=== PATIENT | male | born 1965 | race Caucasian/White ===

== ENCOUNTER 2017-01-21 09:27 | Emergency (ER) | payer SELFPAY ==
[~2017-01-21] VITALS: Ht 170.2 cm; Wt 98.0 kg
[2017-01-21 09:27] VITALS: Ht 170.2 cm; Wt 98.0 kg
[2017-01-21] MEDS ORDERED: ONDANSETRON 4 MG INJ IV STA (09:33)
[2017-01-21] MEDS ORDERED: morphine 4 MG/ML VIAL IV STA (09:33)
[2017-01-21] MEDS ORDERED: SOD CHLORIDE 0.9% 500 ML IV STA (09:33)
[2017-01-21 10:01] LABS: BASOPHIL # 0.1 10^3/ul (0.0-0.1); BASOPHILS % 0.7 % (0.0-2.0); EOSINOPHILS # 0.2 10^3/ul (0.0-0.5); EOSINOPHILS % 1.6 % (0.0-7.0); HEMOGLOBIN 15.5 g/dl (14.0-18.0); LYMPHOCYTES # 2.3 10^3/ul (0.8-2.9); LYMPHOCYTES % 22.8 % (15.0-51.0); MEAN CORPUSCULAR HEMOGLOBIN 29.6 pg (29.0-33.0); MEAN CORPUSCULAR HGB CONC 34.4 g/dl (32.0-37.0); MEAN PLATELET VOLUME 9.3 fl (7.4-10.4); MONOCYTE # 0.6 10^3/ul (0.3-0.9); MONOCYTES % 6.5 % (0.0-11.0); NEUTROPHILS % 67.9 % (39.0-77.0); PLATELET COUNT 344 10^3/UL (140-415); RED BLOOD COUNT 5.23 10^6/ul (4.70-6.10); RED CELL DISTRIBUTION WIDTH 11.7 % (11.5-14.5); WHITE BLOOD COUNT 9.9 10^3/ul (4.8-10.8)
[2017-01-21] MEDS ORDERED: HYDROmorphONE 1 MG/ML SYG ONE ×2 (10:17→10:45)
[2017-01-21 11:16] VITALS: BP 132/90; PULSE 69; RESP 14; TEMP 98.9
--- NOTE | 2017-01-21 11:22 | RADRPT ---
PROCEDURE: CT Abdomen and Pelvis without contrast. CLINICAL INDICATION: Right flank pain. TECHNIQUE: Routine abdominopelvic CT was performed without intravenous contrast and reformatted in the axial, coronal, sagittal planes. Radiation dose: CTDIvol (mGy) = 20.1; total DLP mGy-cm = 1284. One or more of the following radiation dose techniques were used: -Automated exposure control. -Adjust of the mA and/or kV according to patient size. -Use of iterative reconstruction technique. COMPARISON: None. FINDINGS: There are diffuse steatotic changes evident within the mildly enlarged liver measuring 19 cm in cran iocaudal length. Gallbladder, biliary system, pancreas, adrenal glands, and spleen are unremarkable by unenhanced CT. There is mild renal pelviectasis with perinephric inflammation without a ureteral calculus identifie d. Left kidney is within normal limits. No abnormal bowel wall thickening or dilatation. Appendix is normal. Small bowel loops are normal in caliber mural thickness. Diastases of the rectus abdominis musculature with a small fat-containing umbilical hernia. There are trace aortic calcifications without aneurysm. Small left greater than right fat containing inguinal hernia. There are no concerning bone lesions. IMPRESSION: Right renal pelviectasis with peripelvic inflammation without urolithiasis. Findings may reflect py elonephritis/ascending urinary tract infection or a recently passed calculus. Hepatic steatosis with mild hepatomegaly. RPTAT: EE .Mathew Cordero MD, MD Date Time Electronically viewed and signed by .Mathew Cordero MD, on 01/21/2017 11:27 .C/
[2017-01-21] MEDS ORDERED: ONDA4TAB14 PO (11:37)
[2017-01-21] MEDS ORDERED: TAMS-14 PO (11:37)
[2017-01-21] MEDS ORDERED: IBUP800T25 PO (11:37)
[2017-01-21] MEDS ORDERED: HYDR-902 PO (11:37)
[2017-01-21 11:47] LABS: ALBUMIN 4.5 g/dl (3.3-4.9); ALBUMIN/GLOBULIN RATIO 1.32; BILIRUBIN,INDIRECT 0.5 mg/dl (0-1.1); BILIRUBIN,TOTAL 0.5 mg/dl (0.2-1.3); CALCIUM 9.5 mg/dl (8.4-10.2); CREATININE 0.88 mg/dl (0.61-1.24); POTASSIUM 3.6 mmol/L (3.5-5.1); TOTAL PROTEIN 7.9 g/dl (6.1-8.1)
--- NOTE | 2017-01-21 11:56 | ERD ---
ER Documentation Chief Complaint Date/Time DATE: 01/21/17 TIME: 11:47 Chief Complaint Abdominal Pain HPI This is a 52-year-old male with no significant past medical history does not take medications who presents with sudden onset of right-sided abdominal pain with slight radiation to the right flank. Pain is moderate to severe, colicky but now more constant. He denies any fevers or chills, no dysuria urgency or frequency. He denies any chest pain or pleuritic pain. He denies history of renal stone. ROS All systems reviewed and are negative except as per history of present illness. Medications Home Meds Active Scripts Ondansetron (Ondansetron Odt) 4 Mg Tab.rapdis, 4 MG PO Q6H Y for NAUSEA AND/OR VOMITING, #10 TAB Prov:KERRY MARIE MD 01/21/17 Hydrocodone/Acetaminophen (Tippecanoe 10-325 Tablet) 1 Each Tablet, 1 TAB PO Q6H Y for PAIN, #7 TAB Prov:KERRY MARIE MD 01/21/17 Tamsulosin Hcl* (Flomax*) 0.4 Mg Cap.er.24h, 0.4 MG PO DAILY, #14 CAP Prov:KERRY MARIE MD 01/21/17 Ibuprofen* (Motrin*) 800 Mg Tab, 800 MG PO Q6H Y for PAIN AND OR ELEVATED TEMP, #30 TAB Prov:KERRY MARIE MD 01/21/17 PMhx/Soc Medical and Surgical Hx: pt denies Medical Hx, pt denies Surgical Hx History of Surgery: No Anesthesia Reaction: No Hx Neurological Disorder: No Hx Respiratory Disorders: No Hx Cardiac Disorders: No Hx Psychiatric Problems: No Hx Miscellaneous Medical Probl: No Hx Alcohol Use: No Hx Substance Use: No Hx Tobacco Use: Yes Smoking Status: Current every day smoker FmHx Family History: No diabetes Physical Exam Vitals Vital Signs Date Time Temp Pulse Resp B/P Pulse Ox O2 Delivery O2 Flow Rate FiO2 01/21/17 09:30 98.9 73 12 154/93 98 01/21/17 09:27 98.9 73 12 154/93 98 Physical Exam General: Well developed, well nourished, Uncomfortable Head: Normocephalic, atraumatic. Eyes: Pupils equally reactive, EOM intact ENT: Moist mucous membranes Neck: Supple, no lymphadenopathy Respiratory: Lungs clear bilaterally, no distress Cardiovascular: RRR, no murmurs, rubs, or gallops Abdominal: Soft, No tenderness to McBurney's point, negative Gomez sign, no inguinal hernia, no pulsatile mass and no peritonitis : Deferred MSK: No edema, no unilateral swelling, 5/5 strength Neurologic: Alert and oriented, moving all extremities, normal speech, no focal weakness, no cerebellar signs Skin: No rash Psych: Normal mood Result Diagram: 01/21/1740 Results 24 hrs Laboratory Tests Test 01/21/17 09:40 White Blood Count 9.910^3/ul Red Blood Count 5.2310^6/ul Hemoglobin 15.5g/dl Hematocrit 45.0% Mean Corpuscular Volume 86.0fl Mean Corpuscular Hemoglobin 29.6pg Mean Corpuscular Hemoglobin Concent 34.4g/dl Red Cell Distribution Width 11.7% Platelet Count 19426^3/UL Mean Platelet Volume 9.3fl Neutrophils % 67.9% Lymphocytes % 22.8% Monocytes % 6.5% Eosinophils % 1.6% Basophils % 0.7% Nucleated Red Blood Cells % 0.0/100WBC Neutrophils # (Manual) 6.710^3/ul Lymphocytes # 2.310^3/ul Monocytes # 0.610^3/ul Eosinophils # 0.210^3/ul Basophils # 0.110^3/ul Nucleated Red Blood Cells # 0.010^3/ul Current Medications Medications (Trade) Dose Ordered Sig/Nathalie Route PRN Reason Start Time Stop Time Status Last Admin Dose Admin Sodium Chloride (NS) 500 ml @ 500 mls/hr Q1H STAT IV 01/21/17 09:33 01/21/17 11:19 DC 01/21/17 09:46 Morphine Sulfate (morphine) 4 mg ONCE STAT IV 01/21/17 09:33 01/21/17 09:35 DC 01/21/17 09:46 Ondansetron HCl (Zofran Inj) 4 mg ONCE STAT IV 01/21/17 09:33 01/21/17 09:35 DC 01/21/17 09:46 Hydromorphone HCl (Dilaudid) 1 mg STK-MED ONCE .ROUTE 8/30/17 10:17 01/21/17 11:00 DC Hydromorphone HCl (Dilaudid) 1 mg STK-MED ONCE .ROUTE 01/21/17 10:45 01/21/17 11:01 DC Procedures/MDM EKG, MONITORS, & DIAGNOSTIC IMAGING: CT abdomen and pelvis IMPRESSION: Right renal pelviectasis with peripelvic inflammation without urolithiasis. Findings may reflect pyelonephritis/ascending urinary tract infection or a recently passed calculus. Hepatic steatosis with mild hepatomegaly. LAB INTERPRETATION: Urinalysis with hematuria without evidence of infection, no renal insufficiency. Hyperglycemia of 219 without evidence of diabetic ketoacidosis MEDICAL DECISION MAKING: The patient presents with colicky right-sided abdominal pain. Low clinical concern for acute aortic process such as dissection. His clinical presentation is more consistent with renal or ureteral colic. Given that the patient has never had a kidney stone before CT imaging of the abdomen and pelvis would be appropriate. Symptom control and rule out infected stone would also be appropriate ER COURSE: The patient received multiple rounds of Dilaudid with pain control. He is now pain-free and asymptomatic. His diagnostic imaging suggests a recently passed stone. This is more consistent with ureterolithiasis and passed stones and pyelonephritis given no leukocytosis and no fever. The patient will benefit from outpatient follow-up The patient does have hyperglycemia with no known diagnosis of diabetes. Given borderline elevation at 217 outpatient glucose testing and fasting glucose would be appropriate. The patient was informed of this. No indication to initiate metformin at this time I kept the patient and/or family informed of laboratory and diagnostic imaging results throughout the emergency room course. DISPOSITION PLAN: We discussed follow up with the patient's primary care doctor within 24 to 48 hours as needed. We also discussed return to the emergency room for worsening symptoms or worsening condition. Outpatient referral: Urology Discharge Medications: Accepting care team and consultations: I discussed the current laboratory data, diagnostic imaging and emergency care provided. Admitting team: Tippecanoe, Zogoldie, Motkatharine, Flomax We discussed the use of narcotics including avoidance of operating heavy machinery and driving as well as its addictive properties. Departure Diagnosis: Primary Impression: Ureterolithiasis Additional Impression: Hyperglycemia Condition: Stable Patient Instructions: Kidney Stone, Passed, Kidney Stone W/ Colic Referrals: [facility] Usted se garrison hecho un examen mdico de control que le indica que no est en garo condicin que requiera tratamiento urgente en el Departamento de Emergencia. Un estudio ms profundo y el tratamiento de kendall condicin pueden esperar sin ningn riesgo hasta que usted sea atendida/o en el consultorio de kendall mdico o garo cl jesus. Es responsabilidad suya arreglar garo yves para el seguimiento del santhosh. MANEJO DE CONDICIONES NO URGENTES EN EL FUTURO 1) Si usted tiene un mdico de atencin primaria: Usted debera llamar a kendall mdico de atencin primaria antes de venir al departamento de emergencia. Despus de las horas de consultorio, kendall doctor o kendall asociado/a est disponible por telfono. El mdico o enfermero de erick en el servicio telefnico puede asesorarle por perez medio para atender el problema, o santhohs contrario se puede programar garo yves. 2) Si usted no tiene un mdico de atencin primaria: Llame al mdico o clnica de referencia que aparece abajo vic las horas de consultorio para hacer garo yves para que le vean. CLINICAS: [facility] [id number] [facility] [phone] [address] [facility] [phone] [address] [facility]. [facility] [phone] [address] [facility] [place] [id number] [phone] [facility]. [phone] [address] [facility] () Usted se garrison hecho un examen mdico de control que le indica que no est en garo condicin que requiera tratamiento urgente en el Departamento de Emergencia. Un estudio ms profundo y el tratamiento de kendall condicin pueden esperar sin ningn riesgo hasta que usted sea atendida/o en el consultorio de kendall mdico o garo cl jesus. Es responsabilidad suya arreglar garo yves para el seguimiento del santhosh. MANEJO DE CONDICIONES NO URGENTES EN EL FUTURO 1) Si usted tiene un mdico de atencin primaria: Usted debera llamar a kendall mdico de atencin primaria antes de venir al departamento de emergencia. Despus de las horas de consultorio, kendall doctor o kendall asociado/a est disponible por telfono. El mdico o enfermero de erick en el servicio telefnico puede asesorarle por perez medio para atender el problema, o santhosh contrario se puede programar garo yves. 2) Si usted no tiene un mdico de atencin primaria: Llame al mdico o condado institucions de referencia que aparece abajo vic las horas de consultorio para hacer garo yves para que le vean. SI USTED NO PUEDE PAGAR PARA KEESHA UN MEDICO puede ir a: [id number] [place] [address] [facility] [address] [place] [address] [facility] [address] [place] [address] [facility] [address] [place], [place] [id number] Additional Instructions: Llame al doctor nombrado abajo (Referral Sources) MAANA y chi garo YVES PARA DENTRO DE GARO SEMANA. Dgale a la secretaria que nosotros le instruimos hacer esta yves.Avise o llame si kendall condicin se empeora antes de la yves. KERRY MARIE MD Jan 21, 2017 11:56
[2017-01-21 12:23] LABS: ADD UMIC YES; UR ASCORBIC ACID NEGATIVE (NEGATIVE); UR BILIRUBIN (Dip) NEGATIVE (NEGATIVE); UR BLOOD (Dip) 3+ mg/dL (NEGATIVE); UR CLARITY SLIGHTLY CLOUDY (CLEAR); UR COLOR AMBER (YELLOW); UR GLUCOSE (Dip) 2+ mg/dL (NEGATIVE); UR KETONES (Dip) TRACE mg/dL (NEGATIVE); UR LEUKOCYTE ESTERASE (Dip) NEGATIVE Leu/ul (NEGATIVE); UR MUCUS FEW /HPF (NONE SEEN); UR NITRITE (Dip) NEGATIVE (NEGATIVE); UR RBC 67 /HPF (0-5); UR TOTAL PROTEIN (Dip) 2+ mg/dl (NEGATIVE); UR UROBILINOGEN (Dip) 1+ mg/dL (NEGATIVE)
== END 2017-01-21 11:40 | disposition home or self-care (01) ==
LOC: E/R 09:27
DX: N20.1 Calculus of ureter (principal); R73.9 Hyperglycemia, unspecified; F17.210 Nicotine dependence, cigarettes, uncomplicated
CPT/HCPCS: 36415; 74176; 80053; 81001; 83690; 85025; 96374; 96375; 99285; J1170; J2270; J2405; J7040